=== PATIENT | female | born 1995 | race Caucasian/White ===

== ENCOUNTER → 2016-07-30 | Outpatient (CLI) | payer BC | LOC: KOH-I 11:41 | DX: J40 Bronchitis, not specified as acute or chronic (principal) | CPT/HCPCS: 71020 ==

== ENCOUNTER 2020-07-11 12:14 | Emergency (ER) | payer BC | END 2020-07-11 13:37 | disposition home or self-care (01) | LOC: ER1 12:14 | DX: S40.012A Contusion of left shoulder, initial encounter (principal); V49.40XA Driver injured in collision with unspecified motor vehicles in traffic accident, initial encounter; Y92.410 Unspecified street and highway as the place of occurrence of the external cause | CPT/HCPCS: 71046; 73030; 96372; 99283; J1885 ==

== ENCOUNTER → 2020-09-09 | Outpatient (CLI) | payer BC | LOC: KOH-I 09:22 | DX: R10.30 Lower abdominal pain, unspecified (principal); K59.00 Constipation, unspecified | CPT/HCPCS: 74018 ==

== ENCOUNTER → 2020-09-12 | Outpatient (CLI) | payer OTHER | LOC: KOH-I 09-11 09:30 | DX: R10.30 Lower abdominal pain, unspecified (principal) | CPT/HCPCS: 74176 ==

== ENCOUNTER 2021-06-06 10:43 | Emergency (ER) | payer BC ==
[2021-06-06] MEDS ORDERED: HYDROCODONE-AC1 EACH PO (17:21)
== END 2021-06-06 17:43 | disposition home or self-care (01) ==
LOC: ER1 10:43
DX: S82.852A Displaced trimalleolar fracture of left lower leg, initial encounter for closed fracture (principal); Z20.822 Contact with and (suspected) exposure to COVID-19; X50.1XXA Overexertion from prolonged static or awkward postures, initial encounter; Y92.009 Unspecified place in unspecified non-institutional (private) residence as the place of occurrence of the external cause
CPT/HCPCS: 27768; 73590; 73600; 73610; 73700; 96374; 96375; 99283; J1885; J2270; J2405; J2704; U0002

== ENCOUNTER → 2021-06-19 | Day surgery (SDC) | payer BC ==
[~2021-06-19] VITALS: Ht 177.8 cm; Wt 90.7 kg
[~2021-06-19] MED LIST: HYDROCODON-ACE1 EAC6 PO; HYDROCODONE-AC1 EACH PO; IBUPROFEN200 M1 PO
== END | disposition home or self-care (01) ==
LOC: OR 07:40
DX: S82.852A Displaced trimalleolar fracture of left lower leg, initial encounter for closed fracture (principal); S82.452A Displaced comminuted fracture of shaft of left fibula, initial encounter for closed fracture; W00.0XXA Fall on same level due to ice and snow, initial encounter; Z20.822 Contact with and (suspected) exposure to COVID-19
CPT/HCPCS: 73610; 76000; 84703; C1713; J0690; J1100; J1885; J2001; J2250; J2405; J2704; J2795; J3010; J7120